=== PATIENT | female | born 1995 | race American Indian/Alaskan Native ===

== ENCOUNTER 2016-05-03 16:57 | Outpatient (CLI) | payer MEDICAID | END 2016-05-03 16:58 | disposition home or self-care (01) | LOC: LAB 16:57 | PROVIDERS: ATTEND Advanced Practice Midwife | DX: O36.0190 Maternal care for anti-D [Rh] antibodies, unspecified trimester, not applicable or unspecified (principal); Z3A.00 Weeks of gestation of pregnancy not specified | CPT/HCPCS: 86850; 86900; 86901; J2790 ==

== ENCOUNTER 2016-05-05 14:56 | Outpatient (CLI) | payer MEDICAID ==
[2016-05-05] MEDS ORDERED: LACTATED RINGERS 500 ML IV ONE (16:45)
== END 2016-05-05 15:59 | disposition home or self-care (01) ==
LOC: TRG 14:56
PROVIDERS: ATTEND Obstetrics & Gynecology
DX: O36.0190 Maternal care for anti-D [Rh] antibodies, unspecified trimester, not applicable or unspecified (principal); Z3A.00 Weeks of gestation of pregnancy not specified
CPT/HCPCS: 96372; J2790

== ENCOUNTER 2021-04-22 14:28 | Outpatient (CLI) | payer MEDICAID | END 2021-04-22 17:38 | disposition home or self-care (01) | LOC: LAB 14:28 → APU 17:17 → LAB 17:38 | DX: O26.893 Other specified pregnancy related conditions, third trimester (principal); Z67.11 Type A blood, Rh negative; Z3A.28 28 weeks gestation of pregnancy | CPT/HCPCS: 86850; 86900; 86901; 96372; J2790 ==